=== PATIENT | male | born 1955 | race Caucasian/White ===

== ENCOUNTER → 2018-03-30 | Outpatient (CLI) | payer SELFPAY | LOC: AMB 13:23 | PROVIDERS: ATTEND Nurse Practitioner | DX: K92.1 Melena (principal); R17 Unspecified jaundice; R09.02 Hypoxemia | CPT/HCPCS: A0425; A0427 ==

== ENCOUNTER → 2018-04-23 | Outpatient (CLI) | payer SELFPAY | LOC: AMB 13:47 | PROVIDERS: ATTEND Nurse Practitioner | DX: R58 Hemorrhage, not elsewhere classified (principal); I95.9 Hypotension, unspecified; R10.12 Left upper quadrant pain | CPT/HCPCS: A0425 ==

== ENCOUNTER 2018-06-29 10:02 | Emergency (ER) | payer OTHER ==
--- NOTE | 2018-06-29 10:06 | ER Report ---
History and Physical Time Seen By MD: 10:06 HPI/ROS CHIEF COMPLAINT: Gastric tube came out HISTORY OF PRESENT ILLNESS: This is a 62 year old male. His gastric tube came out. No pain or other problems at this time. Constitutional Vital Sign - Last 24 Hours 06/29/18 06/29/18 10:06 10:55 Temp 97.6 Pulse 74 64 Resp 16 16 B/P (MAP) 126/89 112/72 (85) Pulse Ox 94 O2 Delivery Room Air Physical Exam Normal G-tube tract. Tube evaluated, only has 3ml of water in the balloon. This was replaced with 7ml of water in the balloon. Easily inserted in the mature tract. Flushes easily without pain. We did look for a replacement tube, but none available. Medical Decision Making ED Course/Re-evaluation ED Course As above. Decision to Disposition Date: Jun 29, 2018 Decision to Disposition Time: 10:49 Depart Departure Latest Vital Signs Vital Signs Date Time Temp Pulse Resp B/P (MAP) Pulse Ox O2 Delivery O2 Flow Rate FiO2 06/29/18 10:55 64 16 112/72 (85) 06/29/18 10:06 97.6 94 Room Air Impression: Primary Impression: Complication of feeding tube Condition: Improved Disposition: HOME OR SELF-CARE Additional Instructions: No changes at this time; you may continue normal use of the gastric tube at this time. Follow-up with any complications DEANGELO SCHULZ MD Jun 29, 2018 10:06
[2018-06-29] MEDS ORDERED: WATER STERILE(*) 10 ML VIAL 10 ML ONE (10:23)
[2018-06-29 10:55] VITALS: BP 112/72
== END 2018-06-29 10:59 | disposition home or self-care (01) ==
LOC: ER 10:26
DX: T85.898A Other specified complication of other internal prosthetic devices, implants and grafts, initial encounter (principal)
CPT/HCPCS: 99282

== ENCOUNTER 2019-03-04 13:12 | Emergency (ER) | payer OTHER ==
[2019-03-04] MEDS ORDERED: NS(*) 0.9% 1000 ML BAG 1,000 ML IV ONE (13:18)
--- NOTE | 2019-03-04 13:22 | ER Report ---
History and Physical Time Seen By MD: 13:20 Hx. of Stated Complaint: g-tube bleeding since this morning HPI/ROS CHIEF COMPLAINT: Bleeding from G-tube HISTORY OF PRESENT ILLNESS: 63-year-old male history of new diagnosis of esophageal carcinoma had a G-tube placed in February notice the last 8-12 hours bleeding around the G-tube site. Progressive and consistent bleeding patient denies any abdominal pain at this time says a G-tube has been functional. Patient denies any nausea vomiting diarrhea fever chills called 911 with the bleeding asked to go to [place] due to his hypertension tachycardia feeling lightheaded they brought him here for evaluation patient has no additional complaints at this time REVIEW OF SYSTEMS: Respiratory: No cough, no dyspnea. Cardiovascular: No chest pain, no palpitations. Gastrointestinal: Bleeding from the G-tube Musculoskeletal: No back pain. Remainder of the 14 system rev: Yes Allergies: Coded Allergies: DAVID Inhibitors (Verified Allergy, Intermediate, 03/04/19) Penicillins (Verified Allergy, Intermediate, 03/04/19) Home Meds Reported Medications Furosemide (LASIX) 20 Mg Tablet, 1 TAB PO DAILY, TAB 03/04/19 Ondansetron 4 Mg Odt (ONDANSETRON 4 MG ODT) 4 Mg Tab.rapdis, 4 MG PO ONCE, TAB 03/04/19 Pantoprazole Sodium (PANTOPRAZOLE SODIUM) 40 Mg Tablet.dr, 40 MG PO QDAY, TAB.SR 03/04/19 Duloxetine Hcl (CYMBALTA) 30 Mg Capsule.dr, 30 MG PO QDAY, #5 CAP 03/04/19 Fentanyl 100 Mcg Patch (FENTANYL 100 MCG PATCH) 1 Each Patch.td72, 0.5 EACH TD Q72H, PATCH.72H 03/04/19 Lorazepam (LORAZEPAM) 1 Mg Tab, 1 MG PO PRN, TAB 03/04/19 Reviewed Nurses Notes: Yes Old Medical Records Reviewed: Yes Constitutional Vital Sign - Last 24 Hours 03/04/19 03/04/19 03/04/19 03/04/19 13:15 13:30 14:30 15:00 Pulse 90 83 67 75 Resp 18 17 9 12 B/P (MAP) 91/80 106/74 (85) 123/75 (91) 119/89 (99) Pulse Ox 91 92 100 99 O2 Delivery Room Air Physical Exam General Appearance: The patient is alert, has no immediate need for airway protection and no current signs of toxicity. [ ] Eyes: Pupils equal and round no injection. Respiratory: Chest is non tender, lungs are clear to auscultation. Cardiac: regular rate and rhythm [ ] Gastrointestinal: Examination shows an obviously placed G-tube with bleeding in and around the G-tube site Musculoskeletal: Neck: Neck is supple and non tender. Extremities have full range of motion and are non tender. Skin: No rashes or lesions. [ ] DIFFERENTIAL DIAGNOSIS: After history and physical exam differential diagnosis was considered for bleeding from the G-tube active bleeding hypertension Medical Decision Making Data Points Result Diagram: 03/04/19 1321 03/04/19 1321 Laboratory Hematology Test 03/04/19 00:00 03/04/19 13:21 03/04/19 14:42 Urine Color Yellow Urine Clarity Clear Urine pH 7.0 pH (4.8-9.5) Urine Specific [place] 1.016 Urine Protein Negative mg/dL (NEGATIVE) Urine Glucose (UA) 50 mg/dL (NEGATIVE) Urine Ketones 20 mg/dL (NEGATIVE) Urine Blood Negative (NEGATIVE) Urine Nitrite Negative (NEGATIVE) Urine Bilirubin Negative (NEGATIVE) Urine Urobilinogen 0.2 mg/dL (0.2-1.9) Urine Leukocyte Esterase Negative (NEGATIVE) Urine RBC None /HPF (0-2/HPF) Urine WBC 2 /HPF (0-5/HPF) Urine Squamous Epithelial Cells Few /LPF (</=FEW) Urine Bacteria Negative /HPF (NONE-FEW) Urine Hyaline Casts Few /LPF (NONE-FEW) Urine Mucus None /HPF (NONE-FEW) Red Blood Count 4.41 M/uL (4.00-5.60) Mean Corpuscular Volume 77.9 fL (80.0-96.0) Mean Corpuscular Hemoglobin 25.7 pg (26.0-33.0) Mean Corpuscular Hemoglobin Concent 33.0 g/dL (32.0-36.0) Red Cell Distribution Width 20.4 % (11.5-14.5) Mean Platelet Volume 7.4 fL (7.2-11.1) Neutrophils (%) (Auto) 83.8 % (39.4-72.5) Lymphocytes (%) (Auto) 9.3 % (17.6-49.6) Monocytes (%) (Auto) 5.8 % (4.1-12.4) Eosinophils (%) (Auto) 0.0 % (0.4-6.7) Basophils (%) (Auto) 1.1 % (0.3-1.4) Nucleated RBC Relative Count (auto) 0.0 /100WBC Neutrophils # (Auto) 6.7 K/uL (2.0-7.4) Lymphocytes # (Auto) 0.8 K/uL (1.3-3.6) Monocytes # (Auto) 0.5 K/uL (0.3-1.0) Eosinophils # (Auto) 0.0 K/uL (0.0-0.5) Basophils # (Auto) 0.1 K/uL (0.0-0.1) Nucleated RBC Absolute Count (auto) 0.00 K/uL Sodium Level 134 mmol/L (137-145) Potassium Level 3.7 mmol/L (3.5-5.0) Chloride Level 102 mmol/L (98-107) Carbon Dioxide Level 22 mmol/L (22-30) Blood Urea Nitrogen 15 mg/dl (9-21) Creatinine 0.70 mg/dl (0.66-1.25) Glomerular Filtration Rate Calc > 60.0 Random Glucose 130 mg/dl (75-110) Calcium Level 8.3 mg/dl (8.4-10.2) Total Bilirubin 0.6 mg/dl (0.2-1.3) Aspartate Amino Transf (AST/SGOT) 25 U/L (0-35) Alanine Aminotransferase (ALT/SGPT) 12 U/L (0-56) Alkaline Phosphatase 95 U/L (0-126) Total Protein 5.4 g/dl (6.3-8.2) Albumin 3.0 g/dl (3.5-5.0) Prothrombin Time 16.0 seconds (12.0-14.4) Prothromb Time International Ratio 1.27 Activated Partial Thromboplast Time 31 seconds (23-35) Chemistry Test 03/04/19 00:00 03/04/19 13:21 03/04/19 14:42 Urine Color Yellow Urine Clarity Clear Urine pH 7.0 pH (4.8-9.5) Urine Specific [place] 1.016 Urine Protein Negative mg/dL (NEGATIVE) Urine Glucose (UA) 50 mg/dL (NEGATIVE) Urine Ketones 20 mg/dL (NEGATIVE) Urine Blood Negative (NEGATIVE) Urine Nitrite Negative (NEGATIVE) Urine Bilirubin Negative (NEGATIVE) Urine Urobilinogen 0.2 mg/dL (0.2-1.9) Urine Leukocyte Esterase Negative (NEGATIVE) Urine RBC None /HPF (0-2/HPF) Urine WBC 2 /HPF (0-5/HPF) Urine Squamous Epithelial Cells Few /LPF (</=FEW) Urine Bacteria Negative /HPF (NONE-FEW) Urine Hyaline Casts Few /LPF (NONE-FEW) Urine Mucus None /HPF (NONE-FEW) White Blood Count 8.1 k/uL (4.5-11.0) Red Blood Count 4.41 M/uL (4.00-5.60) Hemoglobin 11.3 g/dL (14.0-18.0) Hematocrit 34.4 % (42.0-52.0) Mean Corpuscular Volume 77.9 fL (80.0-96.0) Mean Corpuscular Hemoglobin 25.7 pg (26.0-33.0) Mean Corpuscular Hemoglobin Concent 33.0 g/dL (32.0-36.0) Red Cell Distribution Width 20.4 % (11.5-14.5) Platelet Count 342 K/uL (150-450) Mean Platelet Volume 7.4 fL (7.2-11.1) Neutrophils (%) (Auto) 83.8 % (39.4-72.5) Lymphocytes (%) (Auto) 9.3 % (17.6-49.6) Monocytes (%) (Auto) 5.8 % (4.1-12.4) Eosinophils (%) (Auto) 0.0 % (0.4-6.7) Basophils (%) (Auto) 1.1 % (0.3-1.4) Nucleated RBC Relative Count (auto) 0.0 /100WBC Neutrophils # (Auto) 6.7 K/uL (2.0-7.4) Lymphocytes # (Auto) 0.8 K/uL (1.3-3.6) Monocytes # (Auto) 0.5 K/uL (0.3-1.0) Eosinophils # (Auto) 0.0 K/uL (0.0-0.5) Basophils # (Auto) 0.1 K/uL (0.0-0.1) Nucleated RBC Absolute Count (auto) 0.00 K/uL Glomerular Filtration Rate Calc > 60.0 Calcium Level 8.3 mg/dl (8.4-10.2) Total Bilirubin 0.6 mg/dl (0.2-1.3) Aspartate Amino Transf (AST/SGOT) 25 U/L (0-35) Alanine Aminotransferase (ALT/SGPT) 12 U/L (0-56) Alkaline Phosphatase 95 U/L (0-126) Total Protein 5.4 g/dl (6.3-8.2) Albumin 3.0 g/dl (3.5-5.0) Prothrombin Time 16.0 seconds (12.0-14.4) Prothromb Time International Ratio 1.27 Activated Partial Thromboplast Time 31 seconds (23-35) Coagulation Test 03/04/19 14:42 Prothrombin Time 16.0 seconds Prothromb Time International Ratio 1.27 Activated Partial Thromboplast Time 31 seconds Urinalysis Test 03/04/19 00:00 Urine Color Yellow Urine Clarity Clear Urine pH 7.0 pH (4.8-9.5) Urine Specific [place] 1.016 Urine Protein Negative mg/dL (NEGATIVE) Urine Glucose (UA) 50 mg/dL (NEGATIVE) Urine Ketones 20 mg/dL (NEGATIVE) Urine Blood Negative (NEGATIVE) Urine Nitrite Negative (NEGATIVE) Urine Bilirubin Negative (NEGATIVE) Urine Urobilinogen 0.2 mg/dL (0.2-1.9) Urine Leukocyte Esterase Negative (NEGATIVE) Urine RBC None /HPF (0-2/HPF) Urine WBC 2 /HPF (0-5/HPF) Urine Squamous Epithelial Cells Few /LPF (</=FEW) Urine Bacteria Negative /HPF (NONE-FEW) Urine Hyaline Casts Few /LPF (NONE-FEW) Urine Mucus None /HPF (NONE-FEW) ED Course/Re-evaluation ED Course ED course medical decision making 63-year-old male comes emergency Department today with bleeding active around his feeding tube site initial INR was mistakingly elevated 9.1 repeat [address] scan did however demonstrated significant amount of blood within the stomach itself most likely source of bleeding is coming from the tumor mass itself due to the circumstance she will be transferred to a higher level care at [facility] with surgical oncology receiving him for emergent intervention surgical consult here at [facility] was evaluated initially is stable for transport and not able needing to have anything done here patient be transported via helicopter Decision to Disposition Date: March 04, 2019 Decision to Disposition Time: 16:56 Depart Departure Latest Vital Signs Vital Signs Date Time Temp Pulse Resp B/P (MAP) Pulse Ox O2 Delivery O2 Flow Rate FiO2 03/04/19 15:00 75 12 119/89 (99) 99 03/04/19 13:15 Room Air Impression: Primary Impression: GI bleed Condition: Improved Disposition: [facility] TO [facility] CLIFTON PETERS MD March 04, 2019 13:22
[2019-03-04] MEDS ORDERED: ONDA4TAB9 PO (13:31)
[2019-03-04] MEDS ORDERED: LOR1 PO (13:31)
[2019-03-04] MEDS ORDERED: FURO20TA19 PO (13:31)
[2019-03-04] MEDS ORDERED: DULO30CA35 PO (13:31)
[2019-03-04] MEDS ORDERED: FENT-23 TD (13:31)
[2019-03-04] MEDS ORDERED: PANT40TA65 PO (13:31)
[2019-03-04 13:33] LABS: PLATELET COUNT, AUTOMATED 342 K/uL (150-450)
[2019-03-04] MEDS ORDERED: IOPAMIDOL 76% 100 ML INFUS BTL 100 ML ONE ×2 (13:38→14:27)
[2019-03-04 14:18] LABS: INR 1.18
[2019-03-04] MEDS ORDERED: fentaNYL CITR 100 MCG/2 ML AMP IVP ONE ×2 (14:50→17:05)
[2019-03-04 14:59] LABS: INR 1.27
--- NOTE | 2019-03-04 16:05 | RADIOLOGY IMAGING REPORT ---
FACILITY: [facility] [place] PATIENT NAME: Emanuel Batres : 1955 MR: [id number] V: [id number] EXAM DATE: ORDERING PHYSICIAN: CLIFTON PETERS TECHNOLOGIST: Location: [facility] [place] Patient: Emanuel Batres : 1955 Visit/Account:[id number] Date of Sevice: 03/04/2019 EXAMINATION: CT abdomen and pelvis with contrast COMPARISON: CT 02/04/2019 and earlier. HISTORY: Bleeding around gastrostomy tube. History of esophageal cancer. PROCEDURE: Multiplanar contrast enhanced CT of the abdomen and pelvis with 75 mL intravenous Isovue 3 70. One of the following dose optimization techniques was utilized in the performance of this exam: A utomated exposure control; adjustment of the mA and/or kV according to the patient's size; or use of an iterative reconstruction technique. Specific details can be referenced in the facility's radiolo gy CT exam operational policy. FINDINGS: Visualized thorax: Distal esophagus cervical vertebral thickening is redemonstrated. New trace right pleural effusion. Right lower lobe peripheral small region of consolidation, less likely volume los s. Coronary atherosclerosis. Aortic valve calcifications. Liver: Lateral right hepatic dome 3.1 cm low-attenuation lesion is unchanged. Indistinct low attenua tion infiltrative lesion in the region of the falciform ligament is unchanged. Gallbladder and biliary system: Negative Spleen: Negative. Pancreas: Negative. Adrenal glands: Negative. Kidneys and bladder: No mass or hydronephrosis. Urinary bladder is within normal limits. Vessels: Aortoiliac mild atherosclerosis. No abdominal aortic aneurysm. IVC is within normal limits . 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 Bowel and mesentery: Gastrostomy tube is normally positioned. Stomach is moderately distended by het erogeneous intermediate attenuation material. Small bowel is within normal limits. Appendix is unre markable. Moderate amount of stool in the colon. Sigmoid mild diverticulosis. No bowel or mesenter ic inflammation. Pelvic organs: Negative. Lymph nodes: Mild retroperitoneal lymph node enlargement is unchanged. Free air/free fluid: Trace amount of low-attenuation abdominopelvic fluid as slightly increased in th e interval. No pneumoperitoneum. Musculoskeletal: Bilateral fat-containing inguinal hernias. Demineralization. No acute findings. IMPRESSION: 1. Distal esophageal thickening and hepatic metastatic disease is unchanged since 02/04/2019. 2. Unchanged mild retroperitoneal lymph node enlargement. 3. Slightly increased trace abdominopelvic free fluid as well as a new trace right pleural effusion. 4. The gastrostomy tube is normally positioned but the stomach is now mildly distended by complex fl uid. Given the history, this could be related to hemorrhage and surgical consultation is recommended . 5. Additional chronic/incidental findings as detailed above. Results were discussed with CLIFTON PETERS at 03/04/2019 3:46 PM. Report Dictated By: Shailesh Alfonso MD at 03/04/2019 3:27 PM Report E-Signed By: Shailesh Alfonso MD at 03/04/2019 4:00 PM [id number]
[2019-03-04] MEDS ORDERED: NS(*) 0.9% 500 ML BAG 500 ML ONE (16:56)
[2019-03-04 17:30] VITALS: BP 130/85
--- NOTE | 2019-03-07 20:22 | General Surgery Consultation ---
History of Present Illness Reason for Consult gi bleed Chief Complaint bleeding through g tube History of Present Illness pt evaluated by me in er 03/04/19. 63 yo m with esoph cancer. has been receiving chemo. began having bleeding from and around gtube about 10 hrs prior to admission. no abd pain. no vomiting. normal bms. normal bms. pt has been feeling light headed. gtube initially placed about 1 yr ago and exchanged over a week ago. History Home Meds Reported Medications Furosemide (LASIX) 20 Mg Tablet, 1 TAB PO DAILY, TAB 03/04/19 Ondansetron 4 Mg Odt (ONDANSETRON 4 MG ODT) 4 Mg Tab.rapdis, 4 MG PO ONCE, TAB 03/04/19 Pantoprazole Sodium (PANTOPRAZOLE SODIUM) 40 Mg Tablet.dr, 40 MG PO QDAY, TAB.SR 03/04/19 Duloxetine Hcl (CYMBALTA) 30 Mg Capsule.dr, 30 MG PO QDAY, #5 CAP 03/04/19 Fentanyl 100 Mcg Patch (FENTANYL 100 MCG PATCH) 1 Each Patch.td72, 0.5 EACH TD Q72H, PATCH.72H 03/04/19 Lorazepam (LORAZEPAM) 1 Mg Tab, 1 MG PO PRN, TAB 03/04/19 Allergies: Coded Allergies: DAVID Inhibitors (Verified Allergy, Intermediate, 03/04/19) Penicillins (Verified Allergy, Intermediate, 03/04/19) Review of Systems Constitutional: Other (per hpi) Exam Vital Signs Vital Signs Date Time Temp Pulse Resp B/P (MAP) Pulse Ox O2 Delivery O2 Flow Rate FiO2 03/04/19 17:30 71 10 130/85 (100) 97 03/04/19 13:15 Room Air General Appearance: Alert, Awake, No Acute Distress Neuro: No Gross deficits Eyes: Other (per, eomi) ENT: Moist Mucous Membranes Cardiovascular: Other (reg rate) Respiratory: No Respiratory Distress GI: Other (abd soft) Psych: Alert & Oriented X3, Appropriate Mood & Affect Medical Decision Making Data Points Result Diagram: 03/04/19 1321 03/04/19 1321 Assessment and Plan Problems: (1) GI bleed Assessment & Plan: ct shows stomach full of blood. hb 11.3. pt light headed. no skin bleeders around gtube. gtube has been about a year ago and replaced over a week ago. unlikely that bleeding is from gtube. bleeding most likely from esoph mass. plan: transfer to higher level of care. pt stable for transfer. Venous Thromboembolism Antithrombotics Is Pt On Any Antithrombotics?: No GALO JOSHI Mar 07, 2019 20:22
== END 2019-03-04 17:45 | disposition short-term general hospital (02) ==
LOC: ER 13:16
DX: K92.2 Gastrointestinal hemorrhage, unspecified (principal); R79.89 Other specified abnormal findings of blood chemistry
CPT/HCPCS: 36430; 74177; 81001; 85025; 85610; 85730; 86850; 86900; 86901; 86920; 96361; 96374; 96376; 99285; J3010; J7030; J7040; P9016; Q9967; 82040; 82247; 82310; 82374; 82435; 82565; 82947; 84075; 84132; 84155; 84295; 84450; 84460; 84520

== ENCOUNTER → 2019-03-04 | Outpatient (REF) ==
[~2019-03-04] MED LIST: DULO30CA35 PO; FENT-23 TD; FURO20TA19 PO; LOR1 PO; ONDA4TAB9 PO; PANT40TA65 PO
== END ==
LOC: AMB 17:14
PROVIDERS: ATTEND Nurse Practitioner
DX: Z02.9 Encounter for administrative examinations, unspecified (principal)

== ENCOUNTER → 2019-03-04 | Outpatient (CLI) | payer OTHER | LOC: AMB 12:40 | PROVIDERS: ATTEND Nurse Practitioner | DX: R53.1 Weakness (principal); R42 Dizziness and giddiness; R53.83 Other fatigue | CPT/HCPCS: A0425; A0427 ==

== ENCOUNTER → 2019-04-28 | Outpatient (CLI) | payer OTHER ==
[~2019-04-28] MED LIST changes: +ALTEPLASE RECOMB 2 MG VIAL IVP PRN; +DEXTROSE 5%(*) 100 ML BAG 100 ML IVPB PRN; +HEPARIN FLSH (PORT) 500 UN/5ML IVP PRN; +LIDOCAINE/SOD BICARB 8.4% SYR ID PRN; +NS(*) 0.9% 100 ML BAG 100 ML IVPB PRN; +NS(*) 0.9% 250 ML BAG 250 ML IVPB PRN; +WATER FOR INJ,STERILE 20 ML IVP PRN
== END ==
LOC: SPU 12:35
PROVIDERS: ATTEND Internal Medicine Medical Oncology
DX: C15.5 Malignant neoplasm of lower third of esophagus (principal)
CPT/HCPCS: J1642